=== PATIENT | female | born 1975 | race Caucasian/White ===

== ENCOUNTER 2020-12-06 21:56 | Emergency (ER) | payer OTHER ==
[2020-12-06 22:03] VITALS: BP 139/79; PULSE 70; TEMP 97.8; BMI 34.9
[2020-12-06] MEDS ORDERED: KETOROLAC TROMETHAMINE 30 MG/1 ML VIAL IM ONE (22:30)
[2020-12-06] MEDS ORDERED: LIDOCAINE 5% TOPICAL PATCH TP ONE (22:31)
[2020-12-06] MEDS ORDERED: CYCLOBENZAPRINE HCL 10 MG TABLET (FP) PO ONE (22:31)
[2020-12-06] MEDS ORDERED: LIDOCAINE 5% TOPICAL PATCH ONE (22:32)
[2020-12-06] MEDS ORDERED: KETOROLAC TROMETHAMINE 30 MG/1 ML VIAL ONE (22:33)
[2020-12-06] MEDS ORDERED: CYCLOBENZAPRINE HCL 10 MG TABLET (FP) ONE (22:33)
[2020-12-07] MEDS ORDERED: LIDOCAINE PATCH REMOVAL MC SCH (11:00)
== END 2020-12-07 11:51 | disposition home or self-care (01) ==
LOC: JERFT 21:56 → JER 21:56 → JERFT 12-07 11:51
PROC: 3E0233Z Introduction of Anti-inflammatory into Muscle, Percutaneous Approach (ICD-10-PCS; principal; 2020-12-06)
DX: M54.42 Lumbago with sciatica, left side (principal)
CPT/HCPCS: 99284-25

== ENCOUNTER 2021-06-28 15:53 | Emergency (ER) | payer OTHER ==
[2021-06-28 16:02] VITALS: BP 146/74; PULSE 74; TEMP 97.8; BMI 40.7
[2021-06-28] MEDS ORDERED: ACETAMINOPHEN 325 MG TABLET (FP) PO ONE (17:10)
[2021-06-28] MEDS ORDERED: ACETAMINOPHEN 325 MG TABLET (FP) ONE (17:16)
[2021-06-28] MEDS ORDERED: KETOROLAC TROMETHAMINE 60 MG/2 ML VIAL IM ONE (18:24)
[2021-06-28] MEDS ORDERED: KETOROLAC TROMETHAMINE 30 MG/1 ML VIAL ONE (18:25)
== END 2021-06-28 18:52 | disposition home or self-care (01) ==
LOC: JER 15:53 → JERFT 15:53
PROC: 3E0233Z Introduction of Anti-inflammatory into Muscle, Percutaneous Approach (ICD-10-PCS; principal; 2021-06-28)
DX: M94.0 Chondrocostal junction syndrome [Tietze] (principal)
CPT/HCPCS: 71046-TC-FY; 71111-TC-FY; 93005; 93010; 96372; 99285-25